=== PATIENT | female | born 2000 | race Caucasian/White ===

== ENCOUNTER 2019-07-08 09:37 | Emergency (ER) | payer BC ==
--- NOTE | 2019-07-08 11:33 | UC ---
Lower Extremity/Ankle HPI - HPI Summary HPI Summary: 19-year-old female who tripped and twisted her right ankle/foot 2 nights ago. She is ambulatory. She complains of pain more to the proximal foot not of the ankle. - History of Current Complaint Chief Complaint: UCLowerExtremity Stated Complaint: RT FOOT INJURY Time Seen by Provider: 07/08/19 11:02 Hx Obtained From: Patient Hx Last Menstrual Period: 06/13/19 ?: No Onset/Duration: Sudden Onset Severity Initially: Moderate Severity Currently: Mild Pain Intensity: 5 Aggravating Factor(s): Ambulation Alleviating Factor(s): Rest Able to Bear Weight: Yes - Allergies/Home Medications Allergies/Adverse Reactions: Allergies Allergy/AdvReac Type Severity Reaction Status Date / Time No Known Allergies Allergy Verified 07/08/19 10:50 Home Medications: Home Medications NK [No Home Medications Reported] 07/08/19 [History Confirmed 07/08/19] PMH/Surg Hx/FS Hx/Imm Hx Previously Healthy: Yes - Surgical History Surgical History: Yes Surgery Procedure, Year, and Place: left knee-ACL, left foot - Family History Known Family History: Positive: Non-Contributory - Social History Occupation: Student Lives: Dormitory/Roommates Alcohol Use: Rare Substance Use Type: None Smoking Status (MU): Never Smoked Tobacco Review of Systems All Other Systems Reviewed And Are Negative: Yes Skin: Positive: Bruising - Very minimal bruising to proximal dorsum of right foot. Motor: Positive: Negative Neurovascular: Positive: Negative Musculoskeletal: Positive: Negative Neurological: Positive: Negative Is Patient Immunocompromised?: No Physical Exam Triage Information Reviewed: Yes Appearance: Well-Appearing, No Pain Distress, Well-Nourished Vital Signs: Initial Vital Signs Temp 97.7 F 07/08/19 10:49 Pulse 78 07/08/19 10:49 Resp 14 07/08/19 10:49 BP 120/66 07/08/19 10:49 Pulse Ox 100 07/08/19 10:49 Vital Signs Reviewed: Yes Musculoskeletal: Positive: Strength Intact, ROM Intact, Other: - Minimal bruising to proximal dorsum of right foot with minimal swelling. Good peripheral pulses, neuro sensation and capillary refill. Full range of motion. Achilles is intact. Ankle is nontender with no swelling. Mild tenderness on palpation over the bruise located on the proximal dorsum right foot. Neurological Exam: Normal Psychological Exam: Normal Skin: Positive: Other - See above notes. Lower Extremity Course/Dx - Course Course Of Treatment: Right foot x-ray:FINDINGS: BONE DENSITY: Normal. BONES: There is no displaced fracture. JOINTS: There is no arthropathy. ALIGNMENT: There is no dislocation. SOFT TISSUES: Unremarkable. OTHER FINDINGS: None. IMPRESSION: NO ACUTE OSSEOUS INJURY. IF SYMPTOMS PERSIST, RECOMMEND REPEAT IMAGING. Patient has crutches at home which she'll use. An Allan bandage was applied and she is to follow-up with the orthopedist if she has any further concerns over the next few days. - Differential Dx/Diagnosis Provider Diagnosis: Right foot sprain Discharge ED - Sign-Out/Discharge Documenting (check all that apply): Patient Departure All imaging exams completed and their final reports reviewed: Yes - Discharge Plan Condition: Good Disposition: HOME Patient Education Materials: Foot Sprain (ED) Referrals: No Primary Care Phys,NOPCP [Primary Care Provider] - Sammy Garcia MD [Medical Doctor] - Additional Instructions: Ice and elevate intermittently over the next day or 2. May take Tylenol or Motrin for pain. Definite follow-up with the orthopedist in 4 or 5 days if no improvement. Ambulate as pain permits. - Billing Disposition and Condition Condition: GOOD Disposition: Home - Attestation Statements Provider Attestation: I was available for consult. This patient was seen by the ANKUR. The patient was not presented to, seen by, or examined by me. -Kandice
== END 2019-07-08 11:33 | disposition home or self-care (01) ==
LOC: UCCORT 09:37
DX: S93.601A Unspecified sprain of right foot, initial encounter (principal); W18.40XA Slipping, tripping and stumbling without falling, unspecified, initial encounter; X50.1XXA Overexertion from prolonged static or awkward postures, initial encounter; Y92.9 Unspecified place or not applicable
CPT/HCPCS: 99202; G0463